=== PATIENT | male | born 1965 | race Caucasian/White ===

== ENCOUNTER 2017-06-29 10:38 | Observation (INO) | payer OTHER ==
[~2017-06-29] VITALS: Ht 182.9 cm; Wt 137.7 kg
[2017-06-29] MEDS ORDERED: CEFTRIAXONE SOD 1 GM VIAL IV ONE (11:00)
[2017-06-29 11:20] LABS: BASOPHILS # (AUTO) 0.1 (0.0-0.1); BASOPHILS % 0.8 % (0.0-1.0); EOSINOPHILS # (AUTO) 0.2 (0.0-0.4); EOSINOPHILS % 2.1 % (0.0-6.0); HEMATOCRIT 41.5 % (38.2-49.6); HEMOGLOBIN 13.9 g/dL (14.0-18.0); LYMPHOCYTES # (AUTO) 0.9 (1.0-3.2); LYMPHOCYTES % 9.4 % (18.0-39.1); MEAN CORPUSCULAR HEMOGLOBIN 31.3 pg (28-32); MEAN CORPUSCULAR HGB CONC 33.5 g/dL (31-35); MEAN CORPUSCULAR VOLUME 93.5 fL (81-99); MONOCYTES # (AUTO) 1.4 (0.2-0.8); MONOCYTES % 14.2 % (4.4-11.3); NEUTROPHILS # (AUTO) 7.3 (2.1-6.9); NEUTROPHILS % 72.4 % (38.7-80.0); PLATELET COUNT 338 x10e3/uL (140-360); RED BLOOD COUNT 4.44 x10e6/uL (4.3-5.7); RED CELL DISTRIBUTION WIDTH 13.7 % (11.7-14.4)
[2017-06-29 11:23] LABS: INR 0.99; PROTHROMBIN TIME 13.6 seconds (11.9-14.5)
[2017-06-29 11:24] LABS: PARTIAL THROMBOPLASTIN TIME 30.6 seconds (23.8-35.5)
[2017-06-29 11:35] LABS: ALANINE AMINOTRANSFERASE 24 IU/L (0-55); ALBUMIN/GLOBULIN RATIO 0.4 (0.8-2.0); ALKALINE PHOSPHATASE 188 IU/L (40-150); ANION GAP 13.7 mmol/L (8-16); BLOOD UREA NITROGEN 18 mg/dL (7-26); BUN/CREATININE RATIO 24 (6-25); CALCIUM 8.4 mg/dL (8.4-10.2); CARBON DIOXIDE 25 mmol/L (22-29); CHLORIDE 102 mmol/L (98-107); CREATININE, SERUM 0.76 mg/dL (0.72-1.25); EST GLOMERULAR FILTRATION RATE > 60 ML/MIN (60-); GLUCOSE 103 mg/dL (74-118); POTASSIUM 3.7 mmol/L (3.5-5.1); SODIUM 137 mmol/L (136-145)
[2017-06-29] MEDS ORDERED: SODIUM CHLORIDE 0.9% 500ML 0 ML ONE (11:43)
[2017-06-29] MEDS ORDERED: VANCOMYCIN HCL 2 GM in SODIUM CHLORIDE 0.9% 500ML 500 ML IV SCH (12:00)
--- NOTE | 2017-06-29 12:54 | Diagnostic Imaging Report ---
PROCEDURE:X-RAY LEFT KNEE, THREE OR MORE VIEWS COMPARISON:None. INDICATIONS:KNEE PAIN, SWELLING FINDINGS: The bones are well-mineralized. There are no acute, displaced fractures, dislocations, lytic or blastic lesions. Minimal to mild tricompartmental degenerative joint disease, with small marginal and patellar osteophytes. No significant joint space narrowing. Moderate suprapatellar effusion. CONCLUSION: Moderate suprapatellar effusion. No acute displaced fracture or dislocation. Matthew Douglas M.D. Dictated by: Matthew Douglas M.D. on 06/29/2017 at 13:02 Electronically approved by: Matthew Douglas M.D. on 06/29/2017 at 13:02
[2017-06-29] MEDS ORDERED: METOPROLOL TART25 MG PO (13:35)
[2017-06-29] MEDS ORDERED: BENICAR20 MG PO (13:35)
[2017-06-29] MEDS ORDERED: LASIX PO (13:35)
[2017-06-29] MEDS ORDERED: MORPHINE SULFATE 2 MG/ML SYR IV PRN (13:45)
[2017-06-29] MEDS ORDERED: MORPHINE SULFATE 4 MG/ML SYR IV PRN (14:00)
[2017-06-29] MEDS: SODIUM CHLORIDE 0.9% 1000ML 1,000 ML IV SCH ×2 (14:08→21:55)
[2017-06-29] MEDS: LEVOFLOXACIN 750MG/D5W 150ML 150 ML IV SCH (14:09)
[2017-06-29] MEDS ORDERED: ONDANSETRON HCL INJ 2 MG/ML VIAL IV PRN (15:30)
[2017-06-29] MEDS ORDERED: ACETAMINOPHEN 325 MG TAB PO PRN (15:30)
[2017-06-29 16:03] LABS: CHOL/HDL RATIO 4.3 (3.9-4.7)
[2017-06-29 16:30] VITALS: BP 153/102
[2017-06-29] MEDS: ENOXAPARIN SOD INJ 40 MG/0.4 ML SYR SC SCH (17:00)
[2017-06-29] MEDS: METOPROLOL TARTRATE 25 MG TAB PO SCH (17:00)
[2017-06-29 18:07] VITALS: BP 138/93
--- NOTE | 2017-06-29 18:26 | History and Physical ---
PRIMARY CARE PHYSICIAN: None CHIEF COMPLAINT: Left knee swelling and pain. HISTORY OF PRESENT ILLNESS: This is a 52-year-old man with a history of hepatitis C virus infection and cirrhosis, who developed 2 days of left knee swelling, redness and pain with increasing in size. The patient came to the hospital for evaluation and management. Here, he was found to have left knee suprapatellar effusion. He is admitted for further evaluation and management. PAST MEDICAL HISTORY: Hepatitis C virus, cirrhosis, hypertension, right pneumothorax, status post chest tube placement, pleurisy. PAST SURGICAL HISTORY: Right-sided chest tube placement. ALLERGIES: PER ELECTRONIC MEDICAL RECORD. FAMILY HISTORY/SOCIAL HISTORY: The patient is single. He has no children. He quit alcohol. No cigarettes. No illicits. MEDICATIONS: Per electronic medical record. REVIEW OF SYSTEMS: Denies any dizziness or chest pain. PHYSICAL EXAMINATION VITAL SIGNS: Have been reviewed. GENERAL: A tired-appearing man resting in bed. HEENT: Anicteric. Pupils respond to light. No oral lesions. CARDIOVASCULAR: Normal S1 and S2. LUNGS: Moderate breath sounds. No wheezing. ABDOMEN: Soft, nontender and nondistended. EXTREMITIES: Bilateral lower extremity edema. On the right leg, he has 1+ leg edema. On left leg, he has 2+ leg edema. Left knee is markedly erythematous, tender, warm, but no skin breakdown. SKIN: Dry. PSYCHIATRIC: Normal affect. LABS: Reviewed. MEDICATIONS: Reviewed. ASSESSMENT AND PLAN: This is a 52-year-old man with: 1. Left knee suprapatellar effusion: Will obtain uric acid level. Orthopedics has been consulted. Will use intravenous vancomycin and intravenous Levaquin. Will obtain blood cultures. 2. Left knee pain: Will use p.r.n. pain medications. 3. Hypertension: Restart home medications of beta charley. 4. Obesity: Body mass index is 40.4. Will obtain a hemoglobin A1c and lipid panel. 5. Prophylaxis: Use Lovenox. 6. Disposition: Treat with intravenous antibiotics and follow up orthopedic recommendations. Job#: [id number] [place]
[2017-06-29 20:00] VITALS: BP 126/82
[2017-06-30] VITALS (8 sets, daily range): BP systolic 122–151; BP diastolic 76–97
[2017-06-30] MEDS ORDERED: VANCOMYCIN 1GM/NS 250 ML 250 ML IV SCH
[2017-06-30] MEDS: SODIUM CHLORIDE 0.9% 1000ML 1,000 ML IV SCH ×2 (06:44→18:04)
[2017-06-30 07:10] LABS: BASOPHILS % 0.5 % (0.0-1.0); EOSINOPHILS # (AUTO) 0.4 (0.0-0.4); EOSINOPHILS % 4.6 % (0.0-6.0); HEMATOCRIT 35.9 % (38.2-49.6); HEMOGLOBIN 11.8 g/dL (14.0-18.0); LYMPHOCYTES # (AUTO) 1.1 (1.0-3.2); LYMPHOCYTES % 12.2 % (18.0-39.1); MEAN CORPUSCULAR HEMOGLOBIN 31.1 pg (28-32); MEAN CORPUSCULAR HGB CONC 32.9 g/dL (31-35); MEAN CORPUSCULAR VOLUME 94.7 fL (81-99); MONOCYTES # (AUTO) 1.6 (0.2-0.8); MONOCYTES % 18.1 % (4.4-11.3); NEUTROPHILS # (AUTO) 5.6 (2.1-6.9); NEUTROPHILS % 63.5 % (38.7-80.0); PLATELET COUNT 295 x10e3/uL (140-360); RED BLOOD COUNT 3.79 x10e6/uL (4.3-5.7); RED CELL DISTRIBUTION WIDTH 13.9 % (11.7-14.4)
[2017-06-30 07:34] LABS: ALANINE AMINOTRANSFERASE 19 IU/L (0-55); ALBUMIN 1.6 g/dL (3.5-5.0); ALBUMIN/GLOBULIN RATIO 0.4 (0.8-2.0); ALKALINE PHOSPHATASE 145 IU/L (40-150); ANION GAP 10.7 mmol/L (8-16); BLOOD UREA NITROGEN 18 mg/dL (7-26); BUN/CREATININE RATIO 23 (6-25); CALCIUM 7.7 mg/dL (8.4-10.2); CARBON DIOXIDE 25 mmol/L (22-29); CHLORIDE 106 mmol/L (98-107); CREATININE, SERUM 0.79 mg/dL (0.72-1.25); EST GLOMERULAR FILTRATION RATE > 60 ML/MIN (60-); GLUCOSE 91 mg/dL (74-118); POTASSIUM 3.7 mmol/L (3.5-5.1); SODIUM 138 mmol/L (136-145)
[2017-06-30 08:37] LABS: EOSINOPHILS % (MANUAL) 1 % (0-7); LYMPHOCYTES % (MANUAL) 10 % (19-48); MONOCYTES % (MANUAL) 6 % (3.4-9.0); NEUTROPHILS % (MANUAL) 80 % (40-74); PLATELET ESTIMATE ADEQUATE; PLATELET MORPHOLOGY COMMENT NORMAL; RBC MORPHOLOGY COMMENT NORMAL
[2017-06-30] MEDS ORDERED: ZOLPIDEM TARTRATE 5 MG TAB PO PRN (09:00)
[2017-06-30] MEDS: OLMESARTAN 20 MG TAB PO SCH (09:05)
[2017-06-30] MEDS: VANCOMYCIN 1GM/NS 250 ML 250 ML IV SCH (09:05)
[2017-06-30] MEDS: METOPROLOL TARTRATE 25 MG TAB PO SCH ×2 (09:05→17:24)
--- NOTE | 2017-06-30 10:31 | Progress Note ---
DATE: June 30, 2017 MEDICINE PROGRESS NOTE TIME OF SERVICE: 8 a.m. SUBJECTIVE: Overnight, feeling a little better. REVIEW OF SYSTEMS: Denies any dizziness, chest pain. VITAL SIGNS: Reviewed. PHYSICAL EXAMINATION GENERAL APPEARANCE: A tired-appearing man resting in bed. HEENT: Anicteric. CARDIOVASCULAR: Normal S1/S2. LUNGS: Moderate breath sounds. ABDOMEN: Soft, nontender, nondistended. EXTREMITIES: Bilateral lower extremity edema. Left knee has less erythema and warmth and tenderness but still has erythema and large, tender edema. SKIN: Dry. PSYCHIATRIC: Flat affect. LABS: Reviewed. MEDICATIONS: Reviewed. ASSESSMENT PLAN: A 52-year-old man. 1. Left knee suprapatellar effusion. 2. Left knee pain. 3. Hypertension. 4. Obesity, body mass index 40.4. PLAN 1. Uric acid level normal. 2. Continue Levaquin and vancomycin. 3. Follow up vancomycin trough. 4. Hemoglobin A1c is 5.0, LDL 87, triglyceride 78. 5. All cultures remain negative. 6. Follow up orthopedic recommendations. 7. Physical therapy. Job#: [id number] EV
--- NOTE | 2017-06-30 11:37 | Consultation ---
DATE OF CONSULTATION: June 30, 2017 ORTHOPEDIC CONSULTATION CHIEF COMPLAINT: Left knee pain and swelling. HISTORY OF PRESENT ILLNESS: This patient is a 52-year-old male with significant history of liver cirrhosis secondary to hepatitis C, who complains of roughly 3 days of left knee pain and swelling. Patient states that he has had occasional discomfort in the past. He denies any injury to the knee. He states that he awoke 2 mornings ago and had redness and swelling in the knee. He states it was painful to bend it. He states he has minimal pain with walking. PAST MEDICAL HISTORY: See H\T\P. SOCIAL HISTORY: Patient states he does not smoke or drink. He quit drinking because of his cirrhosis. PHYSICAL EXAMINATION IN GENERAL: This is a heavyset man. He is in no apparent distress. He is pleasant and talkative. EXTREMITIES: Gross inspection of his left knee shows redness and swelling directly over the patella. The area of swelling and redness is tender. There is no significant joint line tenderness. Range of motion is uncomfortable and from 0 degrees to 90 degrees of flexion. The knee is grossly stable. He has 2+ pitting edema in the left leg. He also has 1+ pitting edema in the right leg. Distal neurovascular exam is normal. IMAGING: X-rays of the left knee were obtained and reviewed. These show mild arthritic changes with marginal osteophytes. ASSESSMENT AND PLAN: This is a 52-year-old man with a septic prepatellar bursitis of the left knee. The findings and treatment were discussed with the patient. This can be managed with antibiotics. He has already reported significant relief since starting IV antibiotics yesterday. He can transition to a 10-day course of oral antibiotics and be discharged from an orthopedic perspective. I provided my contact information and card. He is instructed to follow up if his symptoms do not improve. He is also welcome to see us anytime for his underlying arthritis in the left knee. Thank you for the consultation. Dictated by: Collin Sanchez PA-C Job#: [id number]
[2017-06-30] MEDS: LEVOFLOXACIN 750MG/D5W 150ML 150 ML IV SCH (13:05)
[2017-06-30] MEDS: ENOXAPARIN SOD INJ 40 MG/0.4 ML SYR SC SCH (17:24)
[2017-07-01] VITALS (7 sets, daily range): BP systolic 132–155; BP diastolic 78–105
[2017-07-01] MEDS: SODIUM CHLORIDE 0.9% 1000ML 1,000 ML IV SCH ×2 (00:02→04:42)
[2017-07-01] MEDS: OLMESARTAN 20 MG TAB PO SCH (08:37)
[2017-07-01] MEDS: METOPROLOL TARTRATE 25 MG TAB PO SCH ×2 (08:37→16:20)
[2017-07-01] MEDS: VANCOMYCIN 1GM/NS 250 ML 250 ML IV SCH (08:37)
[2017-07-01] MEDS ORDERED: FUROSEMIDE INJ 10 MG/ML 2 ML VIAL IV ONE (10:30)
[2017-07-01] MEDS: FUROSEMIDE 20 MG TAB PO SCH ×2 (10:45→17:04)
--- NOTE | 2017-07-01 11:39 | Progress Note ---
DATE: July 01, 2017 MEDICINE PROGRESS NOTE TIME OF SERVICE: 10:00 a.m. SUBJECTIVE: Overnight, no events. Feeling a little better. REVIEW OF SYSTEMS: Denies any dizziness. PHYSICAL EXAMINATION VITAL SIGNS: Reviewed. GENERAL APPEARANCE: A tired-appearing man, resting in bed. HEENT: Anicteric. CARDIOVASCULAR: Normal S1, S2. No murmurs. ABDOMEN: Soft, nontender. EXTREMITIES: Bilateral lower extremity edema. He has left knee erythema and warmth and tenderness, which is less compared to yesterday. SKIN: Dry. PSYCHIATRIC: Flat affect. LABS: Reviewed. MEDICATIONS: Reviewed. ASSESSMENT PLAN: A 52-year-old man. 1. Left knee suprapatellar effusion. 2. Left knee pain. 3. Hypertension. 4. Obesity. 5. Peripheral edema. PLAN 1. Uric acid level normal. 2. Continue Levaquin and vancomycin. 3. Continue pain control. 4. Hemoglobin A1c of 5.0, LDL 87, and triglyceride 78. 5. All cultures remain negative. 6. Re-initiate Lasix. 7. Discharge planning. Job#: [id number] VAS
[2017-07-01] MEDS: LEVOFLOXACIN 750MG/D5W 150ML 150 ML IV SCH (13:36)
[2017-07-01] MEDS: ENOXAPARIN SOD INJ 40 MG/0.4 ML SYR SC SCH (16:20)
[2017-07-02] VITALS: BP 150/88
[2017-07-02 04:00] VITALS: BP 126/82
[2017-07-02] MEDS: FUROSEMIDE 20 MG TAB PO SCH (06:01)
[2017-07-02 07:09] LABS: BASOPHILS % 0.6 % (0.0-1.0); EOSINOPHILS # (AUTO) 0.4 (0.0-0.4); EOSINOPHILS % 5.4 % (0.0-6.0); HEMATOCRIT 32.8 % (38.2-49.6); HEMOGLOBIN 11.1 g/dL (14.0-18.0); LYMPHOCYTES # (AUTO) 0.9 (1.0-3.2); LYMPHOCYTES % 12.4 % (18.0-39.1); MEAN CORPUSCULAR HEMOGLOBIN 31.3 pg (28-32); MEAN CORPUSCULAR HGB CONC 33.8 g/dL (31-35); MEAN CORPUSCULAR VOLUME 92.4 fL (81-99); MONOCYTES # (AUTO) 1.4 (0.2-0.8); MONOCYTES % 18.9 % (4.4-11.3); NEUTROPHILS # (AUTO) 4.5 (2.1-6.9); NEUTROPHILS % 61.3 % (38.7-80.0); PLATELET COUNT 203 x10e3/uL (140-360); RED BLOOD COUNT 3.55 x10e6/uL (4.3-5.7); RED CELL DISTRIBUTION WIDTH 13.3 % (11.7-14.4)
[2017-07-02 07:20] VITALS: BP 164/98
[2017-07-02 07:38] VITALS: BP 164/98
[2017-07-02 07:38] LABS: BLOOD UREA NITROGEN 14 mg/dL (7-26); BUN/CREATININE RATIO 19 (6-25); CALCIUM 7.7 mg/dL (8.4-10.2); CARBON DIOXIDE 27 mmol/L (22-29); CHLORIDE 107 mmol/L (98-107); CREATININE, SERUM 0.74 mg/dL (0.72-1.25); EST GLOMERULAR FILTRATION RATE > 60 ML/MIN (60-); GLUCOSE 94 mg/dL (74-118); SODIUM 139 mmol/L (136-145)
[2017-07-02] MEDS ORDERED: TYLENOL WITH C1 EACH PO (07:44)
[2017-07-02] MEDS ORDERED: CLINDAMYCIN HC150 MG PO (07:44)
[2017-07-02] MEDS: OLMESARTAN 20 MG TAB PO SCH (08:27)
[2017-07-02] MEDS: METOPROLOL TARTRATE 25 MG TAB PO SCH (08:27)
[2017-07-02] MEDS: VANCOMYCIN 1GM/NS 250 ML 250 ML IV SCH (09:38)
[2017-07-02 11:34] VITALS: BP 146/95
[2017-07-02] MEDS ORDERED: HYDROCODONE/APAP 10MG-325MG TAB PO STA (13:08)
--- NOTE | 2017-07-02 14:36 | Operative Report ---
DATE OF PROCEDURE: July 02, 2017 PREOPERATIVE DIAGNOSIS: Left knee prepatellar abscess. POSTOPERATIVE DIAGNOSIS: Left knee prepatellar abscess. PROCEDURE: Left knee irrigation and debridement. INDICATIONS: The patient is a 52-year-old gentleman who was admitted with prepatellar cellulitis. He has been given antibiotics. This has now localized to an abscess over the anterior medial aspect of his left knee. This does not involve the knee joint. The findings and options have been discussed. We recommend irrigation and debridement and impacting with Iodoform gauze. The patient states he understands and wishes to proceed. DESCRIPTION OF PROCEDURE: After informed consent, the area around the abscess was prepped and draped in a sterile manner. Betadine was used to prep. Seven mL of 0.5% Marcaine without epinephrine was infiltrated into the area around the abscess. A #10 blade surgical knife was then used to make a 1-1/2-inch incision over the area of fluctuance. A large amount of purulent material was evacuated from the abscess. This was irrigated with sterile saline. Blunt dissection was used to clear up any loculations. Further irrigation was performed. This was packed with Iodoform gauze. A sterile bandage was applied. Job#: [id number]
== END 2017-07-02 14:06 | disposition home or self-care (01) ==
LOC: ER 10:38 → ERHOLD 14:06 → MED/SURG3 15:43
PROVIDERS: ADMIT Internal Medicine; ATTEND Internal Medicine
DX: L02.416 Cutaneous abscess of left lower limb (principal); M70.52 Other bursitis of knee, left knee; R60.9 Edema, unspecified; I10 Essential (primary) hypertension; E66.9 Obesity, unspecified; K74.60 Unspecified cirrhosis of liver; B19.20 Unspecified viral hepatitis C without hepatic coma; Z68.41 Body mass index [BMI] 40.0-44.9, adult
CPT/HCPCS: 10060; 36415 ×3; 73562; 80048; 80053 ×2; 80061; 80202; 83036; 83605; 84550; 85025 ×3; 85610; 85651; 85730; 86140; 87040; 87071; 87205; 96360; 96365; 97116; 97162; 99284; G0378 ×4; J0696; J1650 ×3; J1940; J2270; J2405; J3370 ×4; J7030 ×3; J7040